=== PATIENT | female | born 1970 | race Caucasian/White ===

== ENCOUNTER → 2016-07-20 | Outpatient (CLI) | payer SELFPAY ==
--- NOTE | 2016-07-20 13:19 | US ---
EXAMINATION TYPE: US pelvic complete DATE OF EXAM: 07/20/2016 COMPARISON: NONE CLINICAL HISTORY: Endometrosis N80.9, N92.1 Metrorrhagia. TECHNIQUE: Transabdominal (TA) Date of LMP: 06/24/2016 EXAM MEASUREMENTS: Uterus: 15.0 x 7.9 x 6.7 cm Endometrial Stripe: 1.6 cm Right Ovary: 3.7 x 2.2 x 1.7 cm Left Ovary: 3.2 x 2.7 x 1.9 cm 1. Uterus: 2 large fibroids. Posterior = 3.2 x 3.0 x 3.0 cm; Anterior = 7.0 x 5.7 x 5.7 cm 2. Endometrium: wnl 3. Right Ovary: wnl 4. Left Ovary: wnl Spectral, color and waveform doppler imaging shows good arterial and venous flow within the ovaries ; there is no evidence for ovarian torsion. 5. Bilateral Adnexa: wnl 6. Posterior cul-de-sac: wnl IMPRESSION: 1. Uterine fibroids
== END | disposition home or self-care (01) ==
LOC: RADUSWWP 10:49
PROVIDERS: ATTEND Family Medicine
DX: D25.9 Leiomyoma of uterus, unspecified (principal)
CPT/HCPCS: 76856

== ENCOUNTER → 2016-10-04 | Outpatient (CLI) | payer OTHER ==
[2016-10-04 11:52] LABS: Anisocytosis Slight; Basophils # (A) 0.1 k/uL (0-0.2); Basophils % (A) 1 %; CHCM 27.9; Eosinophils # (A) 0.5 k/uL (0-0.7); Eosinophils % (A) 8 %; HCT 34.8 % (34.0-46.0); HDW 2.94; HGB 9.9 gm/dL (11.4-16.0); Hypochromasia Marked; Luc # (Auto) 0.15; Luc % (Auto) 3; Lymphocytes # (A) 1.5 k/uL (1.0-4.8); Lymphocytes % (A) 26 %; MCH 19.4 pg (25.0-35.0); MCHC 28.4 g/dL (31.0-37.0); MCV 68.5 fL (80.0-100.0); Mean Platelet Volume 8.3; Microcytosis Marked; Monocytes # (A) 0.4 k/uL (0-1.0); Monocytes % (A) 7 %; Neutrophils # (A) 3.2 k/uL (1.3-7.7); Neutrophils % (A) 55 %; RBC 5.08 m/uL (3.80-5.40); WBC 5.9 k/uL (3.8-10.6); WBC (Perox) 5.69
[2016-10-04 12:11] LABS: Anion Gap 9 mmol/L; Blood Urea Nitrogen 11 mg/dL (7-17); Carbon Dioxide 27 mmol/L (22-30); Chloride 103 mmol/L (98-107); Glucose 75 mg/dL (74-99); Non-African American GFR(MDRD) >60 (>60 ml/min/1.73 sqM); Potassium 3.8 mmol/L (3.5-5.1); Sodium 139 mmol/L (137-145)
== END | disposition home or self-care (01) ==
LOC: LABPAT 11:11
PROVIDERS: ATTEND Obstetrics & Gynecology Obstetrics
DX: Z01.812 Encounter for preprocedural laboratory examination (principal); N94.6 Dysmenorrhea, unspecified; D25.9 Leiomyoma of uterus, unspecified
CPT/HCPCS: 80051; 82565; 82947; 84520; 85025; 87086

== ENCOUNTER 2016-10-11 05:49 | Observation (INO) | payer OTHER ==
[2016-10-04 09:47] VITALS: BMI 38.0
--- NOTE | 2016-10-08 13:14 | P.HPIHPCON ---
History of Present Illness H&P Date: 10/08/16 Chief Complaint: Menorrhagia, dysmenorrhea, uterine fibroids This is a 46-year-old 2 para 2 with a presented for evaluation of heavy menstrual bleeding and dysmenorrhea. She did have an ultrasound with Dr. Toledo revealing a 15 week size uterus with a large posterior fibroid measuring 7 cm and a small 3 cm anterior fibroid. She states she has noted heavy menstrual bleeding with small clots for many years and was told when she was younger she had endometriosis. She has yet to have a laparoscopy for evaluation of this endometriosis. She has tried many things for treatment of this heavy menstrual bleeding including topical progesterone and natural enzymes. Given the fibroid enlarged nature of her uterus she wishes definitive therapy at this time. Consent for Procedure: I have explained the operation/procedure to the patient, including the risks, benefits, side effects, alternative therapies (including not receiving the proposed treatment or service), the likelihood of the patient achieving his/her goals, and potential recuperation problems for the procedure/sedation/analgesia , as well as any blood products, if indicated. I also explained to the patient the risks, benefits and side effects of the alternatives, as well as the risks related to not receiving the proposed procedure, care, treatment, or services. 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 History of Any Multi-Drug Resistant Organisms: None Reported Past Surgical History: Adenoidectomy, Breast Surgery, Hernia Repair, Tonsillectomy Additional Past Surgical History / Comment(s): tumor and cyst removed under rt arm as x 2,rt breast procedure to remove fibroid,umbilical hernia repair Past Anesthesia/Blood Transfusion Reactions: No Reported Reaction Additional Past Anesthesia/Blood Transfusion Reaction / Comment(s): no hx blood transfusion Smoking Status: Former smoker - Past Family History Mother Family Medical History: No Reported History Father Family Medical History: Cancer Additional Family Medical History / Comment(s): male breast CA Medications and Allergies Home Medications Medication Instructions Recorded Confirmed Type Ascorbic Acid [Vitamin C] 1,000 mg PO DAILY 10/04/16 10/04/16 History Ferrous Sulfate [Feosol] 325 mg PO DAILY 10/04/16 10/04/16 History Iodine Drops Supplement 4 drop PO DAILY 10/04/16 10/04/16 History Multivitamins, Thera [Multivitamin 1 tab PO DAILY 10/04/16 10/04/16 History (formulary)] Progesterone, Micronized [Crinone] 1.125 gm VG TID 10/04/16 10/04/16 History Allergies Allergy/AdvReac Type Severity Reaction Status Date / Time codeine Allergy Rash/Hives Verified 10/04/16 09:32 Penicillins Allergy Unknown Verified 10/04/16 09:32 Childhood Surgical - Exam Osteopathic Statement: *. No significant issues noted on an osteopathic structural exam other than those noted in the History and Physical/Consult. - General well developed, well nourished, no pain - Eyes PERRL - Neck no masses - Respiratory normal respiratory effort - Cardiovascular Rhythm: regular - Abdomen Abdomen: soft, bowel sounds - Genitourinary Uterus was enlarged in nature but mobile no adnexal masses were appreciated on exam normal external genitalia - Integumentary no rash - Musculoskeletal normal gait - Psychiatric oriented to time, oriented to person, speech is normal Results Ultrasound done in the office revealed a 15 week size uterus with a large posterior fibroid measuring 7 cm in addition a small 3 cm anterior fibroid normal ovaries bilaterally Assessment and Plan (1) Uterine fibroid Status: Acute (2) Menorrhagia Status: Acute (3) Dysmenorrhea Status: Acute
[~2016-10-11 05:49] MED LIST: CLINDAMYCIN 900 MG in DEXTROSE 5% IN WATER 50 ML IVPB ONE; DEXAMETHASONE SOD PHOSPHATE 10 MG/ML 1 ML VIAL IV ONE; ONDANSETRON 4 MG/2 ML VIAL IVP ONE; SCOPOLAMINE 1.5MG/72HR PATCH TRANSDERM ONE
[2016-10-11] MEDS ORDERED: MIDAZOLAM 2 MG/2 ML VIAL IV ONE (07:16)
[2016-10-11] MEDS: LIDOCAINE 1% 20 ML VIAL (10MG/ML) FOR IV START INTRADERMA PRN ×2 (07:16→07:26)
[2016-10-11] MEDS: LACTATED RINGERS 1,000 ML IV SCH ×3 (07:16→14:47)
[2016-10-11] MEDS ORDERED: NEOSTIGMINE 1 MG/ML 10 ML VIAL ONE (07:35)
[2016-10-11] MEDS ORDERED: fentaNYL (PF) 50 MCG/ML 2 ML AMP ONE (07:35)
[2016-10-11] MEDS ORDERED: LIDOCAINE 1% INJ 10MG/ML (20 ML MDV) ONE (07:35)
[2016-10-11] MEDS ORDERED: ROCURONIUM BROMIDE 10 MG/ML 10 ML VIAL IV ONE (07:35)
[2016-10-11] MEDS ORDERED: HYDROmorphone (PF) 1 MG/ML ONE (07:35)
[2016-10-11] MEDS ORDERED: SUCCINYLCHOLINE CHLORIDE VIAL 200 MG/10 ML VIAL IV ONE (07:35)
[2016-10-11] MEDS ORDERED: GLYCOPYRROLATE 0.2 MG/ML 2 ML VIAL ONE (07:35)
[2016-10-11] MEDS ORDERED: PROPOFOL 10 MG/ML 20 ML VIAL IV ONE (07:35)
[2016-10-11] MEDS ORDERED: BUPIVACAINE (PF) 0.25% 30 ML VIAL SQ ONE (08:06)
[2016-10-11] MEDS ORDERED: LACTATED RINGERS 1,000 ML IV ONE ×2 (09:54→10:41)
[2016-10-11] MEDS: HYDROmorphone 1 MG/ML 1 ML SYRINGE IVP ONE ×4 (10:32→12:56)
--- NOTE | 2016-10-11 11:32 | P.OP ---
Date of Procedure: 10/11/16 Preoperative Diagnosis: large uterine fibroids, anterior 3 cm, posterior 7 cm abnormal uterine bleeding Anemia secondary to above Postoperative Diagnosis: same plus endometriosis Procedure(s) Performed: robotic-assisted vaginal hysterectomy, diagnostic cystoscopy Implants: Anesthesia: KAYA Surgeon: Ольга Lindsay Pipe Line Gauger #1: Lisa Toledo Estimated Blood Loss (ml): 50 IV fluids (ml): 1,200 Urine output (ml): 1,200 Pathology: other (uterus cervix right fallopian tube) Condition: stable Disposition: PACU Indications for Procedure: this is a 46-year-old 2 para [address] Toledo with complaints of menorrhagia with irregular bleeding pattern. On physical exam the uterus is noted to be enlarged , endobiopsy was done which was negative. Ultrasound was performed which revealed a grossly enlarged uterus with a large 7 cm posterior fibroid and a 3 cm anterior fibroid. Otherwise the ovaries appeared normal Operative Findings: posterior cul-de-sac was noted to be destroyed secondary to endometriosis some bowel adhesions were noted. Ovaries were grossly normal the fallopian tube on the right was noted to be adherent to the posterior uterine wall normal pelvic anatomy Description of Procedure: patient was met in the preoperative area where informed consent was obtained. She was once again reminded of the risks of surgery including but not limited to infection bleeding damage bladder bowel or ureteric injury. Patient stated an understanding and informed consent was obtained. patient was taken to the operating room where general anesthesia was obtained without difficulty. patient was prepped and draped in normal sterile fashion in dorsal lithotomy position. A weighted speculum posterior vaginal vault and a Pretty catheter was placed under sterile technique. The anterior lip of the cervix and grasped with a single-tooth tenaculum and endocervical canal was then dilated. A V care uterine mucosa advanced for the normal fashion. potential enterocele patient's abdomen where approximately 3 finger breaths above the umbilicus a small skin incision was made through this incision a Veress needle is placed, CO2 insufflation was allowed to occur once a various needle was deemed to be in appropriate position drop of CO2 pressure. Approximately 3 L of gas were used to obtain pneumoperitoneum. The incision was then elongated and 12 mm trocar and sleeve was placed under direct visualization with the laparoscope in place. At this point the above-noted findings were visualized. The additional port sites were then placed at 10 cm lateral and 3 cm inferior midline port these are 8 mm operative ports were placed under direct visualization. In the left upper quadrant 12 mm skin incision was made and a 12 mm trocar and sleeve is placed through the incision and toward the pneumoperitoneum. at this point the the da Precious robot is docked in the usual fashion. The operative arms are then placed in the left operative arm the bipolar forceps was placed in the right operative arm the monopolar scissors. attention then turned to the patient's left utero-ovarian ligament which was grasped with the forceps coagulated and transected hemostasis was appreciated this continued through the broad towards the round which was coagulated and transected with with good hemostasis. lab from the left was then created using sharp and blunt dissection the ascending branch of uterine artery was visualized coagulated and transected with good hemostasis being appreciated. Was then turned to the patient's right adnexa the right fallopian tube was noted to be adherent to the posterior uterine wall this was dissected off sharply with good hemostasis. Attention was then turned to the uterine ovarian ligament which was coagulated and transected with good hemostasis. this continued through the broad ligament which was coagulated 2 and transected with good hemostasis. the bladder flap from the right was then created using sharp and blunt dissection. The ascending branch of uterine artery from the right was then visualized coagulated and transected. at this point the only remaining attachment with the vaginal attachment therefore colpotomy incision was made in a circumferential fashion the uterus was then transected into 3 pieces and delivered through the vagina.. The vaginal cuff was then inspected and good hemostasis was noted. cuff is enclosed though Vicryl [id number] suture 4 with good hemostasis appreciated once again. The pelvis copiously irrigated and all instruments were removed. Then turned to the patient's Pretty catheter which was removed without difficulty, cystoscopy was performed the cystoscope was placed through the urethra toward the bladder bladder bubble noted both ureteral orifices noted be spilling clear yellow urine. The cystoscope was removed and the Pretty catheter was replaced. a sponge stick was placed into the vaginal vault to clear of excess blood/fluid minimal was noted. Attention then turned to the patient's abdomen where the skin incisions were closed with 4-0 Vicryl in a subcuticular fashion Steri-Strips Steri-Strips and sterile dressings were applied as needed. WERE correct 2 patient tolerated procedure well and was taken to the recovery room awake and in stable condition.
[2016-10-11] MEDS: fentaNYL (PF) 50 MCG/ML 2 ML AMP IV PRN ×2 (12:01→12:19)
[2016-10-11] MEDS ORDERED: ONDANSETRON 4 MG/2 ML VIAL IVP ONE (13:00)
[2016-10-11] MEDS ORDERED: Acetaminophen-Codeine 300-30mg TAB PO PRN ×2 (13:46)
[2016-10-11] MEDS ORDERED: ONDANSETRON 4 MG/2 ML VIAL IVP PRN (13:46)
[2016-10-11] MEDS: IBUPROFEN 600 MG TAB PO PRN (14:29)
[2016-10-11] MEDS ORDERED: HYDROcodone/APAP 5-325MG 1 EACH TAB PO PRN (15:34)
[2016-10-11] MEDS ORDERED: HYDROmorphone 1 MG/ML 1 ML SYRINGE IVP PRN (15:35)
[2016-10-11] MEDS: HYDROmorphone 1 MG/ML 1 ML SYRINGE IVP PRN ×2 (18:05→20:12)
[2016-10-11] MEDS: SENNOSIDES-DOCUSATE SODIUM 1 EACH TAB PO SCH (20:12)
[2016-10-11] MEDS: SIMETHICONE 80 MG CHEWABLE PO PRN (20:13)
[2016-10-11] MEDS: HYDROcodone/APAP 5-325MG 1 EACH TAB PO PRN (22:22)
[2016-10-12] MEDS: HYDROmorphone 1 MG/ML 1 ML SYRINGE IVP PRN (02:11)
[2016-10-12] MEDS: HYDROcodone/APAP 5-325MG 1 EACH TAB PO PRN ×2 (05:50→12:06)
[2016-10-12 06:20] LABS: Anisocytosis Slight; Basophils % (A) 0 %; CHCM 28.3; Eosinophils % (A) 0 %; HCT 29.5 % (34.0-46.0); HDW 2.93; HGB 8.5 gm/dL (11.4-16.0); Hypochromasia Marked; Luc # (Auto) 0.17; Luc % (Auto) 2; Lymphocytes # (A) 1.4 k/uL (1.0-4.8); Lymphocytes % (A) 14 %; MCH 19.4 pg (25.0-35.0); MCHC 28.7 g/dL (31.0-37.0); MCV 67.7 fL (80.0-100.0); Mean Platelet Volume 8.7; Microcytosis Marked; Monocytes # (A) 0.8 k/uL (0-1.0); Monocytes % (A) 8 %; Neutrophils # (A) 7.8 k/uL (1.3-7.7); Neutrophils % (A) 77 %; RBC 4.36 m/uL (3.80-5.40); RDW 16.8 % (11.5-15.5); WBC 10.2 k/uL (3.8-10.6); WBC (Perox) 11.08
[2016-10-12] MEDS: IBUPROFEN 600 MG TAB PO PRN ×2 (08:05→15:40)
[2016-10-12] MEDS: LACTATED RINGERS 1,000 ML IV SCH (08:05)
[2016-10-12] MEDS: SENNOSIDES-DOCUSATE SODIUM 1 EACH TAB PO SCH (08:06)
[2016-10-12] MEDS: SIMETHICONE 80 MG CHEWABLE PO PRN ×2 (08:07→13:53)
--- NOTE | 2016-10-12 08:22 | P.PN ---
Subjective Principal diagnosis: Postoperative day 1 status post robotic-assisted vaginal hysterectomy, diagnostic cystoscopy Laureen is postop day 1 status post robotic-assisted vaginal hysterectomy, diagnostic cystoscopy cystoscopy. She has done well postoperatively since her pain was under control last night. She has ambulated. Her Pretty remains draining clear yellow urine and it will be discontinued at this morning. Her pain is controlled with oral medications. She is tolerating regular diet without nausea or vomiting. Objective - Vital Signs Vital signs: Vital Signs Temp 99.4 F 10/11/16 20:25 Pulse 93 10/11/16 20:25 Resp 20 10/11/16 20:25 BP 118/63 10/11/16 20:25 Pulse Ox 98 10/11/16 20:25 Intake & Output 10/11/16 10/12/16 10/12/16 18:59 06:59 18:59 Intake Total 1986 120 Output Total 3000 1500 Balance -1014 -1380 Weight 100.698 kg Intake: IV 1956 Oral 30 120 Output: Urine 2950 1500 Estimated Blood Loss 50 Other: Voiding Method Indwelling Catheter Indwelling Catheter - Constitutional General appearance: Present: no acute distress - Respiratory Respiratory: bilateral: CTA - Cardiovascular Rhythm: regular - Gastrointestinal General gastrointestinal: Present: normal bowel sounds, soft - Psychiatric Psychiatric: Present: A&O x's 3, appropriate affect - Labs CBC & Chem 7: 10/12/16 05:51 Labs: Abnormal Lab Results - Last 24 Hours (Table) 10/12/16 Range/Units 05:51 Hgb 8.5 L (11.4-16.0) gm/dL Hct 29.5 L (34.0-46.0) % MCV 67.7 L (80.0-100.0) fL MCH 19.4 L (25.0-35.0) pg MCHC 28.7 L (31.0-37.0) g/dL RDW 16.8 H (11.5-15.5) % Plt Count 149 L (150-450) k/uL Neutrophils # 7.8 H (1.3-7.7) k/uL Assessment and Plan (1) Uterine fibroid Narrative/Plan: Anticipate discharge later this afternoon. Her Pretty will be discontinued this morning and we will await a spontaneous void. She is given prescriptions for [place]ley, Motrin. She will follow-up in the office in 1-2 weeks. Status: Acute (2) Menorrhagia Status: Acute (3) Dysmenorrhea Status: Acute
--- NOTE | 2016-10-12 08:25 | P.DS ---
Providers Date of admission: 10/11/16 23:13 Expected date of discharge: 10/12/16 Attending physician: Ольга Lindsay Primary care physician: Stated None - Discharge Diagnosis(es) (1) Uterine fibroid Laureen is a very pleasant 46-year-old female that presented yesterday to the hospital for robotic cyst vaginal hysterectomy diagnostic cystoscopy. She had noted enlarged uterus, uterine fibroids, abnormal uterine bleeding, and anemia. Patient wished definitive therapy given the size of her uterus. Surgery was completed without difficulty for further details on the surgery please see the operative report. Postoperatively she has done relatively well. She did struggle with pain initially after surgery but is under control now. She has ambulated, Pretty remains but will be discontinued before discharge and we will await a spontaneous void. Her pain is controlled with oral medications at this time Current Visit: Yes Status: Acute (2) Menorrhagia Current Visit: Yes Status: Acute (3) Dysmenorrhea Current Visit: Yes Status: Acute Plan - Discharge Summary New Discharge Prescriptions: No Action Multivitamins, Thera [Multivitamin (formulary)] 1 tab PO DAILY Iodine Drops Supplement 4 drop PO DAILY Ascorbic Acid [Vitamin C] 1,000 mg PO DAILY Ferrous Sulfate [Feosol] 325 mg PO DAILY Progesterone, Micronized [Crinone] 1.125 gm VG TID Discharge Medication List Ascorbic Acid [Vitamin C] 1,000 mg PO DAILY 10/04/16 [History] Ferrous Sulfate [Feosol] 325 mg PO DAILY 10/04/16 [History] Iodine Drops Supplement 4 drop PO DAILY 10/04/16 [History] Multivitamins, Thera [Multivitamin (formulary)] 1 tab PO DAILY 10/04/16 [History ] Progesterone, Micronized [Crinone] 1.125 gm VG TID 10/04/16 [History] Follow up Appointment(s)/Referral(s): Ольга Lindsay DO [Doctor of Osteopathic Medicine] - 1 Week Patient Instructions/Handouts: Laparoscopic Hysterectomy (GEN)
[2016-10-12 08:57] VITALS: RESP 19
[2016-10-12 11:38] VITALS: BP 109/54; PULSE 88; TEMP 97.7
== END 2016-10-12 16:00 | disposition home or self-care (01) ==
LOC: OR 05:49 → 6PED 11:28 → OR 23:13
PROVIDERS: ADMIT Obstetrics & Gynecology Obstetrics; ATTEND Obstetrics & Gynecology Obstetrics
DX: D25.9 Leiomyoma of uterus, unspecified (principal); N80.0 Endometriosis of uterus; D64.9 Anemia, unspecified; N80.3 Endometriosis of pelvic peritoneum
CPT/HCPCS: 58554; S2900; 81025; 85025; 86850; 86900; 86901; 88307

== ENCOUNTER 2017-03-16 17:39 | Emergency (ER) | payer OTHER ==
[2017-03-16 17:50] VITALS: RESP 20
--- NOTE | 2017-03-16 18:21 | ED ---
Lower Extremity Injury HPI - General Chief Complaint: Extremity Injury, Lower Stated Complaint: LEFT KNEE PROBLEM Time Seen by Provider: 03/16/17 18:04 Source: patient, RN notes reviewed Mode of arrival: wheelchair Limitations: no limitations - History of Present Illness Initial Comments: This a 47-year-old female presents emergency Department chief complaint left knee pain. Patient states she's had on-and-off pain for years dating back to a sledding injury. She states that last night she Will not go the bathroom and states that she had to tend to the wood-burning stove. Patient states she went back to sleep did not fill his cover though woke up with severe left knee pain. She does not remember injuring twisted it. She states is swollen there is no rash or redness noted. Patient denies fever, chills. She states that she's been trying topical ointments and other topical products that she has at home also took ibuprofen with no relief. Patient denies any paresthesias. Patient states she went to a chiropractor today where most likely it's for meniscus advised to orthopedics she states she cannot tolerate discomfort and came the emergency department. - Related Data Home Medications Medication Instructions Recorded Confirmed Ascorbic Acid [Vitamin C] 1,000 mg PO DAILY 10/04/16 03/16/17 Iodine Drops Supplement 1 dose PO DAILY 10/04/16 03/16/17 Iron(Unknown Dose) 2 tab PO DAILY 03/16/17 03/16/17 Romeo-Stim 1 tab PO DAILY 03/16/17 03/16/17 Thyrostim 1 tab PO DAILY 03/16/17 03/16/17 Vitamin D3(Unknown Dose) 1 tab PO DAILY 03/16/17 03/16/17 Previous Rx's Medication Instructions Recorded HYDROcodone/APAP 7.5-325MG [[place] 1 tab PO Q6HR PRN #20 tab 03/16/17 7.5-325] Ibuprofen [Motrin] 600 mg PO Q8HR PRN #30 tab 03/16/17 Allergies Allergy/AdvReac Type Severity Reaction Status Date / Time codeine Allergy Severe Rash/Hives Verified 03/16/17 18:15 Penicillins Allergy Unknown Unknown Verified 03/16/17 18:15 Childhood Review of Systems ROS Statement: Those systems with pertinent positive or pertinent negative responses have been documented in the HPI. ROS Other: All systems not noted in ROS Statement are negative. 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 10/11/2016 Robotic hysterectomy Past Anesthesia/Blood Transfusion Reactions: No Reported Reaction Additional Past Anesthesia/Blood Transfusion Reaction / Comment(s): no hx blood transfusion Past Psychological History: No Psychological Hx Reported Smoking Status: Former smoker Past Alcohol Use History: Occasional Past Drug Use History: None Reported - Past Family History Mother Family Medical History: No Reported History Father Family Medical History: Cancer Additional Family Medical History / Comment(s): male breast CA General Exam Limitations: no limitations General appearance: alert, in no apparent distress Respiratory exam: Present: normal lung sounds bilaterally. Absent: respiratory distress, wheezes, rales, rhonchi, stridor Cardiovascular Exam: Present: regular rate, normal rhythm, normal heart sounds. Absent: systolic murmur, diastolic murmur, rubs, gallop, clicks Extremities exam: Present: other (Left knee patient has limited range of motion secondary to pain, there is mild lumbar swelling, no erythema no warmth with palpation, pedal pulses are equal bilaterally, patient has pain with passive range of motion there is no calf tenderness there is some tenderness along the joint line noted. Negative valgus and varus) Neurological exam: Present: reflexes normal. Absent: motor sensory deficit Skin exam: Present: warm, dry, intact, normal color. Absent: rash Course Vital Signs 03/16/17 17:48 Temperature 97.8 F Pulse Rate 94 Respiratory 20 Rate Blood Pressure 160/86 O2 Sat by Pulse 99 Oximetry Medical Decision Making - Medical Decision Making 47-year-old female presented emergency department for left knee pain. Patient has joint effusion, osteoarthritic changes. Patient will be follow-up with orthopedics placed in knee immobilizer for possible ligamentous injury, meniscus injury. Patient agrees to plan patient be discharged with Paris return parameters were discussed. Disposition Clinical Impression: Effusion of left knee joint, Left knee injury Disposition: HOME SELF-CARE Condition: Stable Instructions: Knee Pain (ED) Additional Instructions: Please return to the Emergency Department if symptoms worsen or any other concerns. Prescriptions: HYDROcodone/APAP 7.5-325MG [Paris 7.5-325] 1 tab PO Q6HR PRN #20 tab PRN Reason: Pain Ibuprofen [Motrin] 600 mg PO Q8HR PRN #30 tab PRN Reason: Pain Referrals: None,Stated [Primary Care Provider] - 1-2 days Benjamin Auguste MD [STAFF PHYSICIAN] - 1-2 days Time of Disposition: 20:46
--- NOTE | 2017-03-16 19:18 | XR ---
PROCEDURE: XR knee complete LT ,3 views DATE AND TIME: 03/16/2017 6:26 PM REFERRING PHYSICIAN: Sav Cowan CLINICAL INDICATION: trauma couple weeks ago, pain TECHNIQUE: Department protocol. COMPARISON: None FINDINGS: There is no fracture or malalignment. Scattered tricompartmental moderate osteoarthritis changes are appreciated. The soft tissues are unremarkable. IMPRESSION: NO ACUTE PROCESS.
[2017-03-16] MEDS ORDERED: HYDROcodone/APAP 5-325MG 1 EACH TAB PO STA (19:23)
--- NOTE | 2017-03-16 20:39 | CT ---
EXAMINATION TYPE: CT knee LT wo con DATE OF EXAM: 03/16/2017 COMPARISON: NONE HISTORY: Patient complains of sudden onset left knee pain. Patient did fall and injure knee [address] DLP: 293 mGycm Automated exposure control for dose reduction was used. FINDINGS: BONES AND JOINTS: There is no fracture or malalignment. No focal skeletal lesions. There are prominen t tricompartmental osteophytic spurs with joint space narrowing and subchondral sclerosis and cyst fo rmation, changes consistent with moderate-plus tricompartmental osteoarthritis. No evidence of intra- articular loose bodies. SOFT TISSUES: There is a prominent joint effusion, of homogeneous CT attenuation consistent with simp le joint effusion. IMPRESSION: 1. POSITIVE FOR JOINT EFFUSION. 2. MODERATE-PLUS TRICOMPARTMENT OSTEOARTHRITIS.
[2017-03-16 21:30] VITALS: BP 160/78; PULSE 80; TEMP 98.6
== END 2017-03-16 21:29 | disposition home or self-care (01) ==
LOC: EC 17:39
DX: S89.92XA Unspecified injury of left lower leg, initial encounter (principal); M25.462 Effusion, left knee; E07.9 Disorder of thyroid, unspecified; Z87.891 Personal history of nicotine dependence; Z79.899 Other long term (current) drug therapy; Z88.0 Allergy status to penicillin; Z88.5 Allergy status to narcotic agent; W19.XXXA Unspecified fall, initial encounter; Y92.009 Unspecified place in unspecified non-institutional (private) residence as the place of occurrence of the external cause
CPT/HCPCS: 73562; 73700; 99284; L1830

== ENCOUNTER 2021-06-02 17:51 | Emergency (ER) | payer OTHER ==
[2021-06-02 18:32] VITALS: BP 137/82; PULSE 88; RESP 18; TEMP 99.8
[2021-06-02] MEDS ORDERED: KETOROLAC 15 MG/ML 1 ML VIAL IM STA (18:46)
[2021-06-02] MEDS ORDERED: ORPHENADRINE 30 MG/ML 2 ML VIAL IM STA (18:46)
[2021-06-02] MEDS ORDERED: ACETAMINOPHEN TAB 500 MG TAB PO STA ×2 (18:46→21:44)
[2021-06-02] MEDS ORDERED: KETOROLAC 15 MG/ML 1 ML VIAL IVP STA (18:51)
[2021-06-02] MEDS ORDERED: ORPHENADRINE 30 MG/ML 2 ML VIAL IVP STA (18:51)
[2021-06-02] MEDS ORDERED: SODIUM CHLORIDE 0.9% 1,000 ML IV ONE (18:52)
--- NOTE | 2021-06-02 19:12 | ED ---
Upper Extremity HPI - General Chief Complaint: Extremity Injury, Upper Stated Complaint: L shoulder pain Time Seen by Provider: 06/02/21 18:38 Source: patient Mode of arrival: wheelchair - History of Present Illness Initial Comments: This is a pleasant 51-year-old female presents to emergency department complaining of left shoulder pain. Patient says she woke up yesterday morning with the pain. Patient states any movement of the shoulder exacerbates the pain. Describing pain to the lateral aspect of the shoulder overlying the deltoid and subacromial space area. Patient denies any pain in the elbow or neck. However she states the pain does radiate into the lateral aspect of the arm at times. No chest pain or shortness of breath. Patient states she went to her chiropractor prior to arrival and he did work on the muscles of the area but states that it seemed like it was a rotator cuff syndrome. Patient was sent here for a steroid injection. Pain is sharp, exacerbated by movement, somewhat alleviated by rest in position. No headache, no fever or chills, no changes in vision or hearing, no sore throat or difficulty with speech, no neck pain, no chest pain or shortness of breath, no abdominal pain, no nausea or vomiting, no changes in urination or bowel movements, no numbness or tingling, no skin rashes or lesions. MD Complaint: Injury to:: left, shoulder - Related Data Home Medications Medication Instructions Recorded Confirmed Ascorbic Acid [Vitamin C] 1,000 mg PO DAILY 10/04/16 03/16/17 Iodine Drops Supplement 1 dose PO DAILY 10/04/16 03/16/17 Iron(Unknown Dose) 2 tab PO DAILY 03/16/17 03/16/17 Romeo-Stim 1 tab PO DAILY 03/16/17 03/16/17 Thyrostim 1 tab PO DAILY 03/16/17 03/16/17 Vitamin D3(Unknown Dose) 1 tab PO DAILY 03/16/17 03/16/17 Previous Rx's Medication Instructions Recorded HYDROcodone/APAP 7.5-325MG [[address] 1 tab PO Q6HR PRN #20 tab 03/16/17 7.5-325] Ibuprofen [Motrin] 600 mg PO Q8HR PRN #30 tab 03/16/17 Acetaminophen [Tylenol] 500 mg PO Q4-6H PRN #24 tab 06/02/21 Cyclobenzaprine [Flexeril] 10 mg PO TID PRN #20 tab 06/02/21 Naproxen [Naprosyn] 500 mg PO Q12HR #24 tab 06/02/21 Allergies Allergy/AdvReac Type Severity Reaction Status Date / Time codeine Allergy Severe Rash/Hives Verified 06/02/21 18:32 Penicillins Allergy Unknown Unknown Verified 06/02/21 18:32 Childhood Review of Systems ROS Statement: Those systems with pertinent positive or pertinent negative responses have been documented in the HPI. ROS Other: All systems not noted in ROS Statement are negative. 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 parkinsons History of Any Multi-Drug Resistant Organisms: None Reported Past Surgical History: Adenoidectomy, Breast Surgery, Hernia Repair, Hysterectomy, Tonsillectomy Additional Past Surgical History / Comment(s): tumor and cyst removed under rt arm as infant x 2,rt breast procedure to remove fibroid,umbilical hernia repair. 10/11/2016 Robotic hysterectomy Past Anesthesia/Blood Transfusion Reactions: No Reported Reaction Additional Past Anesthesia/Blood Transfusion Reaction / Comment(s): no hx blood transfusion Past Psychological History: No Psychological Hx Reported Smoking Status: Never smoker Past Alcohol Use History: Occasional Past Drug Use History: None Reported - Past Family History Mother Family Medical History: No Reported History Father Family Medical History: Cancer Additional Family Medical History / Comment(s): male breast CA General Exam - General Exam Comments Initial Comments: Vital signs reviewed, patient does not appear ill or toxic. Note that temperature was 99.8. However there is no evidence of infectious etiology. Distress is due to pain in the left shoulder Limitations: no limitations General appearance: alert, in distress Head exam: Present: atraumatic, normocephalic, normal inspection Eye exam: Present: normal appearance, PERRL, EOMI. Absent: scleral icterus, conjunctival injection, periorbital swelling ENT exam: Present: normal exam, mucous membranes moist, TM's normal bilaterally Neck exam: Present: normal inspection, full ROM. Absent: tenderness, meningismus, lymphadenopathy Respiratory exam: Present: normal lung sounds bilaterally. Absent: respiratory distress, wheezes, rales, rhonchi, stridor Cardiovascular Exam: Present: regular rate, normal rhythm, normal heart sounds. Absent: systolic murmur, diastolic murmur, rubs, gallop, clicks GI/Abdominal exam: Present: soft, normal bowel sounds. Absent: distended, tenderness, guarding, rebound, rigid Extremities exam: Present: normal inspection, full ROM, normal capillary refill. Absent: tenderness, pedal edema, joint swelling, calf tenderness Left Shoulder Exam: Present: normal inspection, tenderness, other (Patient has tenderness over the subacromial area. Mild soft tissue tenderness elsewhere. No erythema. No break in skin integrity.). Absent: full ROM, swelling, abrasion, laceration, ecchymosis, deformity, crepitus, dislocation, erythema, tenderness over AC joint Back exam: Present: normal inspection Neurological exam: Present: alert, oriented X3, CN II-XII intact Psychiatric exam: Present: normal affect, normal mood Skin exam: Present: warm, dry, intact, normal color. Absent: rash Course Vital Signs 06/02/21 18:27 Temperature 99.8 F H Pulse Rate 88 Respiratory 18 Rate Blood Pressure 137/82 O2 Sat by Pulse 99 Oximetry Medical Decision Making - Medical Decision Making Patient presents with symptomology consistent with impingement syndrome and possible frozen shoulder on the left. Patient was given medications here. X- ray showed calcific tendinitis. Infectious process. No evidence of vascular etiology. There was no chest pain or shortness of breath. Presentation was not consistent with cardiopulmonary disease. Patient was improved after medications. Range of motion was improved with medication as well as Ariel sevens. Patient given follow-up with orthopedics. Naprosyn, Flexeril, acetaminophen Patient was told to return to the ER for any signs or symptoms worsen. Told to return immediately if any other problems arise. All questions answered. Treatment plan discussed. Patient in agreement Every effort has been made to ensure accuracy of this dictation. However, due to the limitations of electronic medical records and dictation devices, errors in charting still occur. - Lab Data Result diagrams: 06/02/21 19:14 06/02/21 20:21 Lab Results 06/02/21 06/02/21 Range/Units 19:14 20:21 WBC 11.4 H (3.8-10.6) k/uL RBC 5.33 (3.80-5.40) m/uL Hgb 16.5 H (11.4-16.0) gm/dL Hct 48.1 H (34.0-46.0) % MCV 90.1 (80.0-100.0) fL MCH 31.0 (25.0-35.0) pg MCHC 34.4 (31.0-37.0) g/dL RDW 13.6 (11.5-15.5) % Plt Count 107 L (150-450) k/uL MPV 9.4 Neutrophils % 74 % Lymphocytes % 16 % Monocytes % 5 % Eosinophils % 4 % Basophils % 1 % Neutrophils # 8.4 H (1.3-7.7) k/uL Lymphocytes # 1.8 (1.0-4.8) k/uL Monocytes # 0.6 (0-1.0) k/uL Eosinophils # 0.4 (0-0.7) k/uL Basophils # 0.1 (0-0.2) k/uL ESR 18 (0-20) mm/hr Sodium 135 L (137-145) mmol/L Potassium 3.6 (3.5-5.1) mmol/L Chloride 106 (98-107) mmol/L Carbon Dioxide 25 (22-30) mmol/L Anion Gap 4 mmol/L BUN 10 (7-17) mg/dL Creatinine 0.53 (0.52-1.04) mg/dL Est GFR (CKD-EPI)AfAm >90 (>60 ml/min/1.73 sqM) Est GFR (CKD-EPI)NonAf >90 (>60 ml/min/1.73 sqM) Glucose 89 (74-99) mg/dL Calcium 7.9 L (8.4-10.2) mg/dL C-Reactive Protein 0.7 (<1.0) mg/dL Disposition Clinical Impression: Impingement syndrome of left shoulder, Calcific tendinitis of left shoulder Disposition: HOME SELF-CARE Condition: Stable Instructions (If sedation given, give patient instructions): Shoulder Impingement Syndrome (ED) Additional Instructions: Range of motion exercises as directed. Call for follow-up appointment with the orthopedic physician as discussed. Follow-up with your regular physician as directed. Return to the ER immediately if any symptoms worsen, new symptoms arise, or any other problems develop. Is patient prescribed a controlled substance at d/c from ED?: No Referrals: Fransisco Pedro DO [Doctor of Osteopathic Medicine] - 1-2 days Time of Disposition: 21:36
--- NOTE | 2021-06-02 19:15 | XR ---
EXAMINATION TYPE: XR shoulder complete LT DATE OF EXAM: 06/02/2021 COMPARISON: NONE HISTORY: Pain TECHNIQUE: 3 views FINDINGS: The glenohumeral joint is intact. There is calcification at the greater tuberosity humerus. There is no fracture nor dislocation. IMPRESSION: Calcific tendinitis. No fracture seen.
[2021-06-02 19:27] LABS: Basophils # (A) 0.1 k/uL (0-0.2); Basophils % (A) 1 %; Eosinophils # (A) 0.4 k/uL (0-0.7); Eosinophils % (A) 4 %; HCT 48.1 % (34.0-46.0); HGB 16.5 gm/dL (11.4-16.0); Lymphocytes # (A) 1.8 k/uL (1.0-4.8); Lymphocytes % (A) 16 %; MCHC 34.4 g/dL (31.0-37.0); MCV 90.1 fL (80.0-100.0); Mean Platelet Volume 9.4; Monocytes # (A) 0.6 k/uL (0-1.0); Monocytes % (A) 5 %; Neutrophils # (A) 8.4 k/uL (1.3-7.7); Neutrophils % (A) 74 %; Platelet Count 107 k/uL (150-450); RBC 5.33 m/uL (3.80-5.40); RDW 13.6 % (11.5-15.5); WBC 11.4 k/uL (3.8-10.6)
[2021-06-02 20:03] LABS: Erythrocyte Sedimentation Rate 18 mm/hr (0-20)
[2021-06-02 21:03] LABS: African American GFR (CKD) >90 (>60 ml/min/1.73 sqM); Anion Gap 4 mmol/L; Blood Urea Nitrogen 10 mg/dL (7-17); C Reactive Protein 0.7 mg/dL (<1.0); Calcium 7.9 mg/dL (8.4-10.2); Carbon Dioxide 25 mmol/L (22-30); Chloride 106 mmol/L (98-107); Glucose 89 mg/dL (74-99); Non-African American GFR(CKD) >90 (>60 ml/min/1.73 sqM); Potassium 3.6 mmol/L (3.5-5.1); Sodium 135 mmol/L (137-145)
[2021-06-02] MEDS ORDERED: CYCLOBENZAPRINE 10 MG TAB PO STA (21:44)
== END 2021-06-02 21:50 | disposition home or self-care (01) ==
LOC: EC 17:51
DX: M75.32 Calcific tendinitis of left shoulder (principal); M75.42 Impingement syndrome of left shoulder; Z88.0 Allergy status to penicillin; Z88.5 Allergy status to narcotic agent
CPT/HCPCS: 36415; 80048; 85652; 85025; 86140; 73030; 99283; 96374; 96375; 96361; J2360; J1885